=== PATIENT | female | born 1950 | race Caucasian/White ===

== ENCOUNTER 2018-07-14 05:35 | Day surgery (SDC) | payer MEDICARE, OTHER ==
[2018-07-10 12:26] VITALS: BMI 214.7
[2018-07-14] MEDS ORDERED: Sodium Chloride 0.9% 0 ML ONE (06:31)
[2018-07-14] MEDS ORDERED: Bupivacaine HCl 0.5%/Epinephrine 1:200,000/PF 30 ml Vial ONE (06:31)
[2018-07-14] MEDS ORDERED: Thrombin 5000 UNITS/5 ML VIAL ONE (06:31)
[2018-07-14 06:37] LABS: #Eosinphils 0.2 thou/uL (0.0-0.7); #Lymphocytes 1.7 thou/uL (1.20-3.40); #Monocytes 0.5 thou/uL (0.11-0.59); #Neutrophils 3.5 thou/uL (1.40-6.50); %Basophils 0.4 % (0.0-1.0); %Eosinophils 3.6 % (0.0-10.0); %Monocytes 8.7 % (0.0-10.0); %Neutrophils 58.3 % (42.0-75.0); Hemoglobin 12.5 g/dL (12.0-16.0); Mean Corpuscular HGB CONC 34.5 g/dL (32.0-36.0); Mean Corpuscular Volume 87.1 fL (78.0-98.0); Mean Platelet Volume 8.6 fL (7.4-10.4); Platelet Count 149 thou/uL (130-400); Red Blood Cell (RBC) Count 4.14 mill/uL (4.20-5.40)
[2018-07-14 06:43] LABS: PTT 27.4 SEC (22.9-36.1); Prothrombin Time 13.1 SEC (12.0-14.7)
--- NOTE | 2018-07-14 06:49 | HP ---
HISTORY OF PRESENT ILLNESS: This is a pleasant 68-year-old female who reports to our office for eval uation of low back pain. She states that she "pulled something" in September while carrying a bag of weeds. The patient states that the pain got better on its own; however, had a relapse this past uary. The patient saw an orthopedist and was treated for piriformis trouble which got significantly better. Today, she has central/midline pain at her sacrum. The patient denies any numbness or tingl ing or radiating pain. She states that right at the beginning of her injury she had some urinary inc ontinence; however, this got better. Today her pain is a 1/10. She feels the pain is most when she pushes up from a sitting position. REVIEW OF SYSTEMS: A 10-point review of systems has been completed and is negative other than stated above in the HPI. PAST MEDICAL HISTORY: Cardiovascular disease, cardiovascular accident, asthma, history of breast can cer, sleep apnea, GERD, hypertension, hyperlipidemia. PAST SURGICAL HISTORY: Tonsillectomy in 1954, fractured ankle in 2010, lobectomy in 2013. HOSPITALIZATIONS: Surgeries, childbirth and chest pain in 2007. FAMILY HISTORY: Father is diagnosed with diabetes, hypertension, heart disease. Mother dec eased, diagnosed with hypertension, heart disease. Siblings are alive. Children are alive. SOCIAL HISTORY: Patient is a nonsmoker, does not use other tobacco products. She rarely drinks any alcohol and does not use any other illicit drugs. She is retired, . Drinks occasional caffei ne. MEDICATIONS: Boniva, potassium chloride, omeprazole, tamoxifen citrate, levothyroxine sodium, simvas tatin, furosemide, ____ sodium, Plavix, Symbicort, lisinopril, albuterol, Sinacea, Centrum Silver, vi tamin D, ____, fish oil, aspirin. ALLERGIES: BACTRIM, CLEOCIN, AMOXICILLIN. OBJECTIVE: CONSTITUTIONAL: Well-appearing, well-nourished, and alert. RESPIRATORY: Normal work of breathing. NEUROLOGIC: Mental status, oriented to time, place and person. Attention span and concentration. S peech is spontaneous, fluent, comprehension intact, content appropriate. Normal fund of knowledge. Cranial nerves: Pupils equal, round, react to light. Extraocular movements intact. Motor; muscle s trength normal in upper extremities. Muscle tone and bulk normal in lower extremities, 5/5 bilateral strength in IPEE, KE, KS, SP, PS, EHL. No radiculopathy. Negative single leg raise bilaterally. R otation of hips bilateral normal. Tender to palpate at S1. Deep tendon reflexes 2+ patellar and Ach illes bilaterally. Sensory to light touch intact. Gait and station: Normal gait. SKIN: No rashes or lesions on exposed skin. PSYCHIATRIC: Normal mood and affect. IMAGING: L5-S1 central herniated disk. ASSESSMENT: Lumbar back pain, herniated nucleus pulposus. PLAN: Dr. Easley has offered surgery, microdiskectomy at L5-S1. Risks and benefits have been dis cussed. The risks discussed included, but were not limited to bleeding, infection, CSF leak, nerve d amage, weakness, incontinence, chronic injuries, arachnoiditis, ventilator dependence, loss of vision , cardiopulmonary complications of anesthesia or . Long-term complications discussed included, but were not limited to degradation of surrounding disks and the need for further surgery. The patie nt states she understands the risks and is willing to proceed.
[2018-07-14] MEDS ORDERED: Midazolam HCl 2 mg/2 ml Vial ONE (06:50)
[2018-07-14 07:05] LABS: Anion Gap 13 mmol/L (10-20); BUN (Urea Nitrogen) 18 mg/dL (9.8-20.1); Calc. Creatinine Clearance 106 mL/min (70-130); Calcium 9.1 mg/dL (7.8-10.44); Carbon Dioxide 23 mmol/L (23-31); Chloride 109 mmol/L (98-107); Estimated GFR-MDRD 67; Glucose 100 mg/dL (80-115); Potassium 3.6 mmol/L (3.5-5.1); Sodium 141 mmol/L (136-145)
--- NOTE | 2018-07-14 08:57 | EKG ---
Test Reason : Blood Pressure : / mmHG Vent. Rate : 068 BPM Atrial Rate : 068 BPM P-R Int : 168 ms QRS Dur : 084 ms QT Int : 434 ms P-R-T Axes : 066 015 027 degrees QTc Int : 461 ms Normal sinus rhythm WNL No previous ECGs available Confirmed by DR. Marge PRADO ([id number]) on 07/14/2018 8:57:33 AM Referred By: Jeane KHAN Confirmed By:DR. Marge PRADO
== END 2018-07-14 07:07 | disposition home or self-care (01) ==
LOC: SDC 05:35
PROVIDERS: ATTEND Neurological Surgery
DX: M51.26 Other intervertebral disc displacement, lumbar region (principal); G47.30 Sleep apnea, unspecified; K21.9 Gastro-esophageal reflux disease without esophagitis; I10 Essential (primary) hypertension; E78.5 Hyperlipidemia, unspecified; J45.909 Unspecified asthma, uncomplicated; Z86.73 Personal history of transient ischemic attack (TIA), and cerebral infarction without residual deficits; Z79.02 Long term (current) use of antithrombotics/antiplatelets; Z79.899 Other long term (current) drug therapy; Z88.0 Allergy status to penicillin; Z88.1 Allergy status to other antibiotic agents; Z88.8 Allergy status to other drugs, medicaments and biological substances; Z53.9 Procedure and treatment not carried out, unspecified reason
CPT/HCPCS: 36415; 80048; 85025; 85610; 85730; 86850; 86900; 86901; 93005; 93010; A4216; J0670; J2250; J3370; J3490

== ENCOUNTER 2018-07-17 08:02 | Observation (INO) | payer MEDICARE, OTHER ==
[2018-07-16 13:20] VITALS: BMI 33.5
[2018-07-17] MEDS ORDERED: Bupivacaine HCl 0.5%/Epinephrine 1:200,000/PF 30 ml Vial ONE (11:55)
[2018-07-17] MEDS ORDERED: Sodium Chloride 0.9% 10 ML ONE (11:55)
[2018-07-17] MEDS ORDERED: Thrombin 5000 UNITS/5 ML VIAL ONE ×2 (11:55→16:01)
[2018-07-17] MEDS ORDERED: Fentanyl 100 MCG/2 ML VIAL ONE ×3 (13:13→17:01)
[2018-07-17] MEDS ORDERED: PROPOFOL 200 MG/20 ML VIAL ONE (15:01)
[2018-07-17] MEDS ORDERED: PHENYLEPHRINE-NS 100 MCG/ML 10 ML SYRINGE ONE (15:01)
[2018-07-17] MEDS ORDERED: Dexamethasone 20 MG/5 ML VIAL ONE (15:01)
[2018-07-17] MEDS ORDERED: Succinylcholine Chloride 20 MG/ML 10 ml SYRINGE FS ONE (15:01)
[2018-07-17] MEDS ORDERED: Metoclopramide HCl 10 MG/2 ML VIAL ONE (15:01)
[2018-07-17] MEDS ORDERED: Lidocaine 1% PF 5 ML VIAL ONE (15:01)
[2018-07-17] MEDS ORDERED: Ondansetron HCl/PF 4 MG/2 ML Vial ONE (15:01)
[2018-07-17] MEDS ORDERED: Glycopyrrolate 0.2 MG/ML 5 ML SYRINGE ONE (15:01)
[2018-07-17] MEDS ORDERED: Ondansetron HCl/PF 4 MG/2 ML Vial IVP PRN (16:52)
[2018-07-17] MEDS ORDERED: Promethazine HCl 25 MG/ML VIAL SLOW IVP PRN (16:52)
[2018-07-17] MEDS ORDERED: HYDROmorphone 2 MG/ML VIAL SLOW IVP PRN (16:52)
[2018-07-17] MEDS ORDERED: Morphine Sulfate 2 MG/ML SYRINGE SLOW IVP PRN (16:52)
[2018-07-17] MEDS ORDERED: Promethazine HCl 25 MG/ML VIAL IM PRN ×2 (16:52→17:09)
[2018-07-17] MEDS ORDERED: Prochlorperazine 10 MG/2 ML VIAL IM PRN (17:09)
[2018-07-17] MEDS ORDERED: Acetaminophen/Codeine 30-300mg Tablet PO PRN ×2 (17:09)
[2018-07-17] MEDS ORDERED: Acetaminophen 650 MG Suppository PR PRN (17:09)
[2018-07-17] MEDS ORDERED: Mag-Al 1200 mg/1200 mg/30 ML UDCUP PO PRN (17:09)
[2018-07-17] MEDS ORDERED: Promethazine 25 MG TAB PO PRN (17:09)
[2018-07-17] MEDS ORDERED: diphenhydrAMINE 25 MG CAP PO PRN (17:09)
[2018-07-17] MEDS ORDERED: Promethazine HCl 12.5 MG SUPP PR PRN (17:09)
[2018-07-17] MEDS ORDERED: diphenhydrAMINE 50 MG/ML VIAL IVP PRN (17:09)
[2018-07-17] MEDS ORDERED: Milk Of Magnesia 30 ML UDCUP PO PRN (17:09)
[2018-07-17] MEDS ORDERED: Bisacodyl 10 MG SUPP PR PRN (17:09)
[2018-07-17] MEDS ORDERED: Zolpidem Tartrate 5 MG TAB PO PRN (17:09)
[2018-07-17] MEDS ORDERED: Acetaminophen 325 MG TAB PO PRN (17:09)
[2018-07-17] MEDS ORDERED: tiZANidine HCl 4 MG TAB PO PRN (17:09)
[2018-07-17] MEDS ORDERED: Non-Formulary Item 1 EACH (Ibandronate Sodium [Boniva] 1 TAB) PO SCH (17:30)
[2018-07-17] MEDS: Sodium Chloride 0.9% 1,000 ML IV SCH (18:28)
[2018-07-17] MEDS: Mometasone/Formoterol 120 PUFF INHALER INH SCH (19:36)
--- NOTE | 2018-07-17 19:36 | OP ---
DATE OF PROCEDURE: 07/17/2018 SURGEON: Gabi Easley M.D. RELATIONS DIRECTOR: Ginette Osborn PA-C PREOPERATIVE INDICATION: Treat pain, prevent neurological deterioration. PREOPERATIVE DIAGNOSES: Intervertebral disk herniation L5-S1, multiple cervical radiculopathies. POSTOPERATIVE DIAGNOSES: Intervertebral disk herniation L5-S1, multiple cervical radiculopathies. OPERATIVE PROCEDURE: Decompressive laminectomy, medial facetectomy, foraminotomy L5-S1, microdiskect phan from the left L5-S1, operating microscope. PREOPERATIVE MEDICATION: Ancef 2 grams IV. DRAIN NUMBER: Zero. DRAIN TYPE: None. OPERATIVE DICTATION: The patient was brought to the operating room. General endotracheal anesthesia was induced. Patient was carefully positioned prone on a gel-filled chest rolls and a lateral fluor o radiograph was used to plan our incision. The lumbar skin was sterilely prepped and draped. We op ened with a 10 blade knife and controlled bleeding with bipolar and monopolar cautery. We used monop olar cautery to dissect through subcutaneous tissues to the thoracodorsal fascia. We incised the fas rani in the midline and reflected the paraspinal muscles off the spinous process and lamina of L5 and S1. A self-retaining retractor was placed on lateral fluoro radiograph confirmed the levels upon whi ch we were operating. We then used an Adson rongeur to remove the spinous process of L5. A Kerrison rongeur was used to fashion a laminectomy. In the midline, the dura was protruding posteriorly just under the lamina and was adhesive there. One bite just to the left of center at L5 caused the tiny durotomy. We controlled the CSF leak and a finished our laminectomy by widened our laminectomy defec t until we were flush with the pedicles. We performed medial facetectomies on both sides to decompre ss the lateral recess at L5-S1. We performed foraminotomies over the S1 nerve roots. We then jabari t the operating microscope into the field. Under microscopic magnification and using microsurgical techniques, we carefully closed the durotomy with 9-0 Prolene in interrupted fashion and then tacked down the muscle pledget over our closure. We turned our attention to the diskectomy. We gently retracted the S1 nerve root medially and found a disk protrusion under it. We incised the protruding portion of the disk and removed disk contents un til the nerve was free. We then found a larger disk protrusion more towards the center of the canal under the S2, S3 and S4 nerve roots. We gently retracted these medially, incised the lateral edge of this disk which was densely calcified. We had to reduce it with a pushing curette back into the int erspace and sweep it laterally. After multiple maneuvers, we were able to reduce the size significan tly and unstretched the sacral nerve roots. We irrigated copiously with bacitracin irrigation. We c ontrolled epidural bleeding with gentle bipolar cautery. We irrigated copiously with bacitracin irri gation. We reinforced our dural closure with DuraSeal tissue sealant and then closed the wound in an atomic layers. This was a clean case and no contamination.
[2018-07-17] MEDS: traMADol HCl 50 MG TAB PO PRN (20:28)
[2018-07-17] MEDS ORDERED: Montelukast Sodium 10 mg Tablet PO SCH (21:00)
[2018-07-17] MEDS ORDERED: Simvastatin 40 MG TAB PO SCH (21:00)
[2018-07-17] MEDS ORDERED: Lisinopril 5 MG TAB PO SCH (21:00)
[2018-07-17] MEDS ORDERED: Vancomycin HCl 1 GM in Premix Bag 1 BAG IVPB SCH (21:00)
[2018-07-18] MEDS: traMADol HCl 50 MG TAB PO PRN (05:40)
[2018-07-18] MEDS: Sodium Chloride 0.9% 1,000 ML IV SCH (05:57)
[2018-07-18] MEDS ORDERED: Levothyroxine Sodium 25 MCG TAB PO SCH (06:00)
[2018-07-18] MEDS: Mometasone/Formoterol 120 PUFF INHALER INH SCH (08:10)
[2018-07-18] MEDS ORDERED: Potassium Chloride 10 MEQ TAB PO SCH (09:00)
[2018-07-18] MEDS ORDERED: Furosemide 40 MG TAB PO SCH (09:00)
--- NOTE | 2018-07-18 09:57 | PRG ---
DATE OF SERVICE: 07/18/2018 SUBJECTIVE: Ms. Ortiz was seen this morning in her hospital room. We kept her overnight t olerate due to some CSF leak intraoperatively. This was closed and reinforced. We are going to star t mobilizing her today. She has had no fevers overnight. She has good neurological function includi ng strength and sensation all the way down to her toes. If she tolerates getting in and out of bed a nd safe for activities of daily living, she can be discharged.
[2018-07-18 12:17] VITALS: TEMP 98
[2018-07-18 12:26] VITALS: BP 98/60
== END 2018-07-18 15:42 | disposition home or self-care (01) ==
LOC: SDC 08:02 → SURG A 18:54
PROVIDERS: ADMIT Neurological Surgery; ATTEND Neurological Surgery
PROC: 01NB0ZZ Release Lumbar Nerve, Open Approach (ICD-10-PCS; principal; 2018-07-17)
PROC: 0SB20ZZ Excision of Lumbar Vertebral Disc, Open Approach (ICD-10-PCS; 2018-07-17)
DX: M51.27 Other intervertebral disc displacement, lumbosacral region (principal); M54.12 Radiculopathy, cervical region; Z79.51 Long term (current) use of inhaled steroids; Z79.899 Other long term (current) drug therapy; Z88.0 Allergy status to penicillin; Z88.1 Allergy status to other antibiotic agents; Z88.2 Allergy status to sulfonamides
CPT/HCPCS: 63030; 76001; 94640 ×2; G0378; A4216; J0670; J1100; J2001; J2405; J2704; J2765; J3010; J3370; J3490